=== PATIENT | female | born 1975 | race African-American/Black ===

== ENCOUNTER 2021-04-24 15:13 | Emergency (ER) | payer MEDICARE, MEDICAID ==
[2021-04-24 16:57] LABS: #Basophils 0.1 thou/uL (0.0-0.2); #Eosinphils 0.2 thou/uL (0.0-0.7); #Lymphocytes 2.4 thou/uL (1.20-3.40); #Monocytes 0.6 thou/uL (0.11-0.59); #Neutrophils 4.3 thou/uL (1.40-6.50); %Monocytes 7.8 % (0.0-10.0); %Neutrophils 56.3 % (42.0-75.0); Hemoglobin 13.1 g/dL (12.0-16.0); Mean Corpuscular HGB CONC 34.1 g/dL (32.0-36.0); Mean Corpuscular Hemoglobin 33.7 pg (27.0-31.0); Mean Corpuscular Volume 98.8 fL (78.0-98.0); Mean Platelet Volume 6.8 fL (7.4-10.4); Platelet Count 217 thou/uL (130-400); RBC Distribution Width 12.7 % (11.5-14.5); White Blood Cell (WBC) Count 7.6 thou/uL (4.8-10.8)
[2021-04-24 17:19] LABS: ALT (SGPT) 25 U/L (8-55); AST (SGOT) 24 U/L (5-34); Albumin 4.1 g/dL (3.5-5.0); Alkaline Phosphatase 89 U/L (40-110); Anion Gap 17 mmol/L (10-20); BUN (Urea Nitrogen) 14 mg/dL (7.0-18.7); Bilirubin, Total 0.3 mg/dL (0.2-1.2); Calc. Creatinine Clearance 0 mL/min (70-130); Calcium 8.9 mg/dL (7.8-10.44); Carbon Dioxide 22 mmol/L (22-29); Chloride 105 mmol/L (98-107); Globulin 3.2 g/dL (2.4-3.5); Glucose 79 mg/dL (70-105); Lipase 34 U/L (8-78); Potassium 3.3 mmol/L (3.5-5.1); Protein, Total 7.3 g/dL (6.0-8.3); Sodium 141 mmol/L (136-145)
[2021-04-24] MEDS ORDERED: Metoclopramide HCl 10 MG/2 ML VIAL ONE (17:21)
[2021-04-24] MEDS ORDERED: Ondansetron PF 4 MG/2 ML Vial ONE (17:21)
[2021-04-24] MEDS ORDERED: Metoclopramide HCl 10 MG/2 ML VIAL IVP SCH (18:30)
[2021-04-24] MEDS ORDERED: Sodium Chloride 0.9% 1,000 ML IV SCH (18:30)
[2021-04-24] MEDS ORDERED: Potassium Chloride 20 MEQ TAB PO SCH (18:30)
[2021-04-24] MEDS ORDERED: Multivitamins, Adult 10 ML, Thiamine HCl 100 MG, Folic Acid 1 MG in Dextrose 5 %-0.45 %... IV SCH (18:30)
[2021-04-24] MEDS ORDERED: Potassium Chloride 20 MEQ TAB ONE (18:49)
[2021-04-24] MEDS ORDERED: Potassium Bicarbonate/Cit Ac 20 MEQ TAB PO SCH (19:15)
== END 2021-04-24 21:09 | disposition home or self-care (01) ==
LOC: ERS 15:13
DX: K95.89 Other complications of other bariatric procedure (principal); R11.2 Nausea with vomiting, unspecified; E87.6 Hypokalemia; R10.812 Left upper quadrant abdominal tenderness; F17.210 Nicotine dependence, cigarettes, uncomplicated
CPT/HCPCS: 36415; 80053; 83605; 83690; 85025; 94760; 96365; 96366; 96367; 96375; J2405; J2765; J3411; J7042